=== PATIENT | female | born 1960 | race American Indian/Alaskan Native ===

== ENCOUNTER 2018-08-04 09:49 | Emergency (ER) | payer OTHER ==
[2018-08-04 10:01] VITALS: TEMP 97.8
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
[2018-08-04 12:25] VITALS: BP 145/74
[2018-08-04 12:34] VITALS: PULSE 69; RESP 19; O2SAT 98
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
== END 2018-08-04 12:33 | disposition left against medical advice (07) ==
LOC: ED 09:49
DX: Z04.1 Encounter for examination and observation following transport accident (principal); V79.9XXA Bus occupant (driver) (passenger) injured in unspecified traffic accident, initial encounter
CPT/HCPCS: 71101; 72050; 73030; 96372; 99283; J1885